=== PATIENT | female | born 1990 | race Caucasian/White ===

== ENCOUNTER 2021-04-20 11:20 | Inpatient (IN) | payer OTHER ==
[2021-04-20] MEDS: ELECTROLYTE-148 SOLN 1,000 ML IV SCH (11:45)
[2021-04-20] MEDS ORDERED: CITRIC ACID/SODIUM CITRATE 30 ML UNIT-DOSE CUP PO ONE (13:00)
[2021-04-20 13:17] VITALS: BMI 30.5
[2021-04-20 16:45] LABS: CORD BASE EXCESS -6.9 mmol/L (0-2); CORD HCO3 21.9 mmHg (20-29); CORD HCO3 23.8 mmHg (20-29); CORD PCO2 56.9 mmHg (30-78); CORD PCO2 66.5 mmHg (30-78); CORD pH 7.172 (7.14-7.44); CORD pH 7.203 (7.14-7.44)
[2021-04-20] MEDS ORDERED: METHYLERGONOVINE MALEATE 0.2 MG/1 ML AMP IM PRN (17:22)
[2021-04-20] MEDS ORDERED: ACETAMINOPHEN 325 MG TABLET (FP) PO PRN (17:22)
[2021-04-20] MEDS ORDERED: IBUPROFEN 800 MG/8 ML IJ IVPB PRN (17:22)
[2021-04-20] MEDS ORDERED: OXYTOCIN 20 UNITS in 0.9% NS 20 UNIT/1,000 ML INFUS.BAG IV ONE (17:29)
[2021-04-20] MEDS: OXYTOCIN 20 UNITS in 0.9% NS 20 UNIT/1,000 ML INFUS.BAG IV SCH (17:40)
[2021-04-20] MEDS ORDERED: ONDANSETRON 4 MG/2 ML VIAL IVPB ONE (18:59)
[2021-04-21] MEDS: LEVOTHYROXINE NA 100 MCG TABLET (FP) PO SCH (06:39)
[2021-04-21 10:19] LABS: BASO % 0.5 % (0-2.0); EOS % 1.4 % (0-4.5); HEMATOCRIT 33.2 % (32.4-45.2); HEMOGLOBIN 11.3 GM/dL (10.7-15.3); LYMPH % 9.9 % (8-40); MCH 29.4 pg (25.7-33.7); MCHC 34.1 g/dl (32.0-36.0); MEAN CELL VOLUME 86.2 fl (80-96); MEAN PLT VOLUME 9.4 fl (7.5-11.1); MONO % 5.4 % (3.8-10.2); NEUT % 82.8 % (42.8-82.8); PLATELET COUNT 287 10^3/uL (134-434); RBC 3.86 M/mm3 (3.60-5.2); RDW 13.9 % (11.6-15.6); WHITE BLOOD COUNT 15.4 K/mm3 (4.0-10.0)
[2021-04-21] MEDS: PRENATAL VITAMINS W/ FOLIC ACID TABLET (FP) PO SCH (11:17)
[2021-04-21] MEDS: ENOXAPARIN NA (PORCINE) 40 MG/0.4 ML DISP.SYRIN SQ SCH (11:17)
[2021-04-21] MEDS ORDERED: BISACODYL 10 MG SUPP.RECT RC PRN (17:22)
[2021-04-21 17:54] LABS: HIV INTERPRETATION NEGATIVE (NEGATIVE)
[2021-04-21] MEDS: SIMETHICONE 80 MG TAB.CHEW (FP) PO PRN (22:05)
[2021-04-21] MEDS: IBUPROFEN 600 MG TABLET (FP) PO PRN (22:05)
[2021-04-22] MEDS: LEVOTHYROXINE NA 100 MCG TABLET (FP) PO SCH (06:28)
[2021-04-22] MEDS: ENOXAPARIN NA (PORCINE) 40 MG/0.4 ML DISP.SYRIN SQ SCH (09:33)
[2021-04-22] MEDS: SIMETHICONE 80 MG TAB.CHEW (FP) PO PRN ×3 (09:33→22:29)
[2021-04-22] MEDS: IBUPROFEN 600 MG TABLET (FP) PO PRN ×2 (09:33→16:21)
[2021-04-22] MEDS: PRENATAL VITAMINS W/ FOLIC ACID TABLET (FP) PO SCH (09:33)
[2021-04-22] MEDS: ELECTROLYTE-148 SOLN 1,000 ML IV SCH (20:16)
[2021-04-22] MEDS: OXYTOCIN 20 UNITS in 0.9% NS 20 UNIT/1,000 ML INFUS.BAG IV SCH (20:16)
[2021-04-22] MEDS: oxyCODONE HCL 5 MG TABLET PO PRN (22:29)
[2021-04-23] MEDS: SIMETHICONE 80 MG TAB.CHEW (FP) PO PRN ×4 (02:31→23:08)
[2021-04-23] MEDS: oxyCODONE HCL 5 MG TABLET PO PRN ×5 (02:31→23:07)
[2021-04-23] MEDS: LEVOTHYROXINE NA 100 MCG TABLET (FP) PO SCH (06:32)
[2021-04-23 07:44] LABS: BASO % 0.4 % (0-2.0); EOS % 2.8 % (0-4.5); HEMATOCRIT 30.9 % (32.4-45.2); HEMOGLOBIN 10.6 GM/dL (10.7-15.3); LYMPH % 23.9 % (8-40); MCH 29.7 pg (25.7-33.7); MCHC 34.4 g/dl (32.0-36.0); MEAN CELL VOLUME 86.2 fl (80-96); MEAN PLT VOLUME 9.4 fl (7.5-11.1); NEUT % 65.9 % (42.8-82.8); PLATELET COUNT 302 10^3/uL (134-434); RBC 3.59 M/mm3 (3.60-5.2); RDW 14.2 % (11.6-15.6); WHITE BLOOD COUNT 10.3 K/mm3 (4.0-10.0)
[2021-04-23] MEDS: ENOXAPARIN NA (PORCINE) 40 MG/0.4 ML DISP.SYRIN SQ SCH (09:44)
[2021-04-23] MEDS: PRENATAL VITAMINS W/ FOLIC ACID TABLET (FP) PO SCH (09:44)
[2021-04-23] MEDS ORDERED: SILVER SULFADIAZINE 1% TOP CREAM 50 GM JAR TP SCH (12:00)
[2021-04-23] MEDS: IBUPROFEN 600 MG TABLET (FP) PO PRN (14:40)
[2021-04-23 21:11] VITALS: TEMP 98.3
[2021-04-24] MEDS: IBUPROFEN 600 MG TABLET (FP) PO PRN ×2 (06:32→09:32)
[2021-04-24] MEDS: LEVOTHYROXINE NA 100 MCG TABLET (FP) PO SCH (06:33)
[2021-04-24 09:11] VITALS: BP 133/89; PULSE 79
[2021-04-24] MEDS: PRENATAL VITAMINS W/ FOLIC ACID TABLET (FP) PO SCH (09:31)
[2021-04-24] MEDS: ENOXAPARIN NA (PORCINE) 40 MG/0.4 ML DISP.SYRIN SQ SCH (09:31)
== END 2021-04-24 09:50 | disposition home or self-care (01) | DRG 788 ==
LOC: JLDR 11:20 → J3W 17:40
PROVIDERS: ADMIT Obstetrics & Gynecology; ATTEND Obstetrics & Gynecology
PROC: 10D00Z1 Extraction of Products of Conception, Low, Open Approach (ICD-10-PCS; principal; 2021-04-20)
DX: O32.1XX0 Maternal care for breech presentation, not applicable or unspecified (principal); O36.5930 Maternal care for other known or suspected poor fetal growth, third trimester, not applicable or unspecified; O99.284 Endocrine, nutritional and metabolic diseases complicating childbirth; Z3A.35 35 weeks gestation of pregnancy; Z37.0 Single live birth
CPT/HCPCS: 36415; 36600; 82803; 85025; 87389; 88307-TC